=== PATIENT | female | born 1945 | race Caucasian/White ===

== ENCOUNTER 2017-07-09 03:01 | Emergency (ER) | payer OTHER ==
[~2017-07-09] VITALS: Ht 165.1 cm; Wt 59.1 kg
[2017-07-09 03:08] VITALS: Ht 165.1 cm; Wt 59.1 kg
[2017-07-09 03:46] VITALS: BP 160/72
[2017-07-09] MEDS ORDERED: METHYLPREDNISOLONE 125 MG INJ IM ONE (04:30)
[2017-07-09] MEDS ORDERED: DIPHENHYDRAMINE 50 MG INJ IM ONE (04:30)
[2017-07-09] MEDS ORDERED: PRED20TA PO (05:04)
[2017-07-09] MEDS ORDERED: BEN25 PO (05:04)
--- NOTE | 2017-07-09 08:15 | ERD ---
ER Documentation Chief Complaint Chief Complaint Rash x 8 days. s/p new BP med. Denies Def Breathing, SOB (REJI GALLEGOS PA-C) HPI Patient is a 71-year-old female with a history of hypertension who presents to the ED for concerns of a rash which started 8 days ago. Patient states 8 days ago she was started on a new blood pressure medication which she does not recall the name of. Patient states she developed lip swelling and tongue swelling. Patient states she discussed these findings with her primary care physician who advised her to discontinue this medication. Patient was then started on Norvasc. Patient states 3 days ago she developed red splotchy like lesions throughout her body. Patient describes the lesions to be itchy. Patient denies any fevers or chills. Patient denies any chest pain, shortness breath, nausea, vomiting, lip swelling, tongue swelling or loss consciousness. Patient denies taking any medication for symptoms. She denies any new lotions, creams, foods, environmental changes, pets. (REJI GALLEGOS PA-C) ROS All systems reviewed and are negative except as per history of present illness. (REJI GALLEGOS PA-C) Medications Home Meds Active Scripts Diphenhydramine Hcl* (Benadryl*) 25 Mg Cap, 25 MG PO Q8, #20 CAP Prov:REJI GALLEGOS PA-C 07/09/17 Prednisone* (Prednisone*) 20 Mg Tab, 40 MG PO DAILY for 4 Days, TAB Prov:REJI GALLEGOS PA-C 07/09/17 Allergies Allergies: Uncoded Allergies: CAN'T REMEMBER (Allergy, 05/13/12) PMhx/Soc History of Surgery: Yes (Appy) Anesthesia Reaction: No Hx Neurological Disorder: No Hx Respiratory Disorders: No Hx Cardiac Disorders: Yes (HTN, Chol) Hx Psychiatric Problems: No Hx Miscellaneous Medical Probl: No Hx Alcohol Use: No Hx Substance Use: No Hx Tobacco Use: No Smoking Status: Never smoker (REJI GALLEGOS PA-C) Physical Exam Vitals Vital Signs Date Time Temp Pulse Resp B/P Pulse Ox O2 Delivery O2 Flow Rate FiO2 07/09/17 03:46 160/72 07/09/17 03:08 97.6 56 20 194/88 99 (PABLO LAWS DO) Physical Exam GENERAL: Well-developed, well-nourished female. Appears in no acute distress. Speaking in full sentences. HEAD: Normocephalic, atraumatic. EYES: Pupils are equally reactive bilaterally. EOMs grossly intact. No conjunctival erythema. No lip swelling. No tongue swelling. Posterior oropharynx is open. Patient is able to swallow on command. ENT: Moist mucous membranes. No uvula deviation. No kissing tonsils. NECK: Supple. No meningismus. Normal range of motion of the neck. LUNG: Clear to auscultation bilaterally. No rhonchi, wheezing, rales or coarse breath sounds. HEART: Regular rate and rhythm. No murmurs, rubs or gallops. EXTREMITIES: Equal pulses bilaterally. No peripheral clubbing, cyanosis or edema. No unilateral leg swelling. NEUROLOGIC: Alert and oriented. Moving all four extremities without any difficulty. Normal speech. Steady gait. SKIN: Normal color. Warm and dry. Erythematous, plaque-like lesions noted throughout the patient's torso, back and bilateral upper thighs. (REJI GALLEGOS PA-C) Results 24 hrs Current Medications Medications (Trade) Dose Ordered Sig/Lina Route PRN Reason Start Time Stop Time Status Last Admin Dose Admin Methylprednisolone Sodium Succinate (Solu-Medrol) 125 mg ONCE ONCE IM 07/09/17 04:30 07/09/17 04:31 DC 07/09/17 04:37 Diphenhydramine HCl (Benadryl) 25 mg ONCE ONCE IM 07/09/17 04:30 07/09/17 04:31 DC 07/09/17 04:37 (PABLO LAWS DO) Procedures/MDM MEDICAL DECISION MAKING: This is a 71-year-old female with history of hypertension presents to the ED for concerns of a rash. Vital signs were reviewed. Patient was afebrile. Patient is not diabetic. Skin exam revealed erythematous, plaque-like lesions throughout the patient's body consistent with hives.. Patient did report that the rash was itchy in nature. Patient denies any lip swelling, tongue swelling , shortness of breath, chest pain or difficulty breathing. Patient was given Solu-Medrol IM and Benadryl here in the ED. Patient reported improvement in itching prior to discharge. I explained to the patient that she should discuss her medications with her primary care physician. Patient was advised to stop taking Norvasc as this may be contributing to her symptoms. Patient was advised to speak to her primary care physician about her blood pressure medications. Given these findings, the patient's presentation is most consistent with allergic reaction secondary to medication. I have a much lower clinical concern for necrotizing fasciitis, sepsis, gangrene, Javier-Wu syndrome, toxic epidural necrolysis, abscess, cellulitis, herpes zoster, viral exanthem, anaphylaxis, fungal infection, insect bite, impetigo, dermatitis. PRESCRIPTIONS: Prednisone Benadryl DISCHARGE: At this time, patient is stable for discharge and outpatient management. Strict anaphylaxis return precautions were discussed with the patient. Patient advised to stop taking Norvasc. I have advised the patient to avoid any new products, creams or possible allergens. I have advised the patient to avoid scratching the lesions. I have instructed the patient to follow-up with his/her primary care physician in 1-2 days. If symptoms persist, patient may need to see a cupola patcher helper for further examinations and testing. I have instructed the patient to promptly return to the ER at any time for any new or worsening symptoms including increased pain, fever, redness, swelling, warmth, difficulty breathing or vomiting. The patient and/or family expressed understanding of and agreement with this plan. All questions were answered. Home care instructions were provided. Patient's blood pressure was elevated (>120/80) but appears stable without evidence of hypertensive emergency, hypertensive urgency or end-organ failure. I had discussion with the patient about the risks of hypertension. I have advised the patient to follow up with his/her primary care physician for outpatient monitoring and treatment for hypertension in 2-3 days. I have instructed the patient to return to the ER for any new or worsening symptoms including chest pain, shortness of breath, headache, blurred vision, confusion, nausea, vomiting or LOC. Disclaimer: Inadvertent spelling and grammatical errors are likely due to EHR/ dictation software use and do not reflect on the overall quality of patient care. Also, please note that the electronic time recorded on this note does not necessarily reflect the actual time of the patient encounter. (REJI GALLEGOS PA-C) I agree with workup and management via dermatology followup, discharged in stable condition. (PABLO LAWS DO) Departure Diagnosis: Primary Impression: Allergic reaction caused by a drug Encounter type: initial encounter Qualified Code: T78.40XA - Allergic reaction to drug, initial encounter Additional Impression: Hives Condition: Stable Patient Instructions: Hives Additional Instructions: Speak to your primary care physician about possible drug allergies. Stop taking Norvasc until he speak to your doctor. Call your primary care doctor TOMORROW for an appointment during the next 1-2 days.See the doctor sooner or return here if your condition worsens before your appointment time. REJI GALLEGOS PA-C Jul 09, 2017 08:02 PABLO LAWS DO Jul 09, 2017 09:08
== END 2017-07-09 05:37 | disposition home or self-care (01) ==
LOC: FTE 03:01
DX: L50.9 Urticaria, unspecified (principal); I10 Essential (primary) hypertension
CPT/HCPCS: 96372; 99284; J1200; J2930